=== PATIENT | male | born 1995 | race Caucasian/White ===

== ENCOUNTER 2020-02-16 21:00 | Emergency (ER) | payer OTHER ==
[~2020-02-16] VITALS: Ht 170.2 cm; Wt 72.6 kg
[~2020-02-16 21:00] MED LIST: ATI2I IV; FOLI1TAB19 PO; HALO5SOL6 IM; THIA100T25 PO
--- NOTE | 2020-02-16 21:04 | NUR ---
PT [facility]. TAKEN TO BED 3
[2020-02-16 21:06] VITALS: BP 132/84
--- NOTE | 2020-02-16 21:14 | NUR ---
[place] [facility] AT BEDSIDE
--- NOTE | 2020-02-16 21:14 | NUR ---
Dr. Ricks examining patient.
--- NOTE | 2020-02-16 21:45 | NUR ---
24 Y/O MALE BIB BLS RUN C/O ETOH. PT HAD AN UNKNOWN AMOUNT OF ALCOHOL. DENIES PAIN AT THIS TIME. VSS. MHX: DENIES NKA
--- NOTE | 2020-02-16 22:50 | NUR ---
Patient appears to be resting comfortably in bed, eyes closed. Vital Signs within normal limits. Respirations even and unlabored. Chest rise is symmetrical. Will continue to monitor.
--- NOTE | 2020-02-17 01:14 | NUR ---
Pt ambualted to nurses station with steady gait and asked, "Can I go home, I feel better and don't want to be here anymore." ERMD made aware.
[2020-02-17 01:32] VITALS: BP 132/66
--- NOTE | 2020-02-17 01:32 | NUR ---
Patient discharged with v/s stable. Written and verbal after care instructions given and explained. Patient verbalized understanding. Ambulatory with steady gait. All questions addressed prior to discharge. Advised to follow up with PMD.
== END 2020-02-17 01:32 | disposition home or self-care (01) ==
LOC: MED 21:00
DX: F10.129 Alcohol abuse with intoxication, unspecified (principal); Z79.899 Other long term (current) drug therapy
CPT/HCPCS: 99283